=== PATIENT | male | born 1995 | race Caucasian/White ===

== ENCOUNTER 2020-10-25 19:32 | Emergency (ER) | payer SELFPAY ==
[~2020-10-25] VITALS: Ht 175.3 cm; Wt 168.7 kg
[2020-10-25 19:32] VITALS: BP 127/53
--- NOTE | 2020-10-25 19:48 | PHYS DOC ---
Past History Past Medical History: No Pertinent History, Anxiety Past Surgical History: Tonsillectomy Alcohol Use: None Drug Use: None General Adult HPI: HPI: ".. I ve been playing a lot of computer games... Got really..into it. drinking t oo many energy and caffeine drinks. Probably did more than 1000mg of caffeine.. Doing dip.. And straight tub chewing tobacco... But started having some sudden rapid heart rate.... And felt dizzy... ".." It was continuous for approximately 2 hours.. I started hyperventilating.. I get anxiety and panic issues.. I felt like maybe I was going to because my heart was beating so fast.. By the time he got here I was much better.. " Patient is a 25 year old male who presents with above hx and complaints acute onset of a tachycardia after consuming a large amount of caffeine and nicotine today. Patient does have a history of anxiety disorder and panic disorder. Patient denies any travel. Patient denies any illicit drug use recently. Patient in the past has used cocaine. Patient does not follow-up with primary care. Patient morbidly obese. There is family history of diabetes both of father and sister. No recent travel outside the [place] area. No specific ill contacts. No history immunosuppression. Review of Systems: Review of Systems: Constitutional: Denies fever or chills Eyes: Denies change in visual acuity HENT: Denies nasal congestion or sore throat Respiratory: Denies cough or shortness of breath Cardiovascular: Complaints of chest discomfort and tachycardia GI: Denies abdominal pain, nausea, vomiting, bloody stools or diarrhea : Denies dysuria Musculoskeletal: Denies back pain or joint pain Integument: Denies rash Neurologic: Denies headache, focal weakness or sensory changes Endocrine: Denies polyuria or polydipsia Lymphatic: Denies swollen glands Psychiatric: Denies depression or anxiety Family History: Family History: Diabetes with sister and father Current Medications: Current Meds: See nursing for home meds Allergies: Allergies: Allergies Coded Allergies Type Severity Reaction Last Updated Verified No Known Drug Allergies 01/15/16 No Physical Exam: PE: Constitutional: Moderate acute distress, non-toxic appearance. [] HENT: Normocephalic, atraumatic, bilateral external ears normal, oropharynx moist, no oral exudates, nose normal. [] Eyes: PERRLA, EOMI, conjunctiva normal, no discharge. [] Neck: Normal range of motion, no tenderness, supple, no stridor. [] Cardiovascular:Heart rate regular rhythm, no murmur [] Lungs & Thorax: Bilateral breath sounds equal apex on auscultation [] Abdomen: Bowel sounds normal, soft, no tenderness, no masses, no pulsatile masses. Morbidly obese. Skin: Warm, dry, no erythema, no rash. Tattoo of "Bid Dog" lt. shoulder. Back: No tenderness, no CVA tenderness. [] Extremities: No tenderness, no cyanosis, no clubbing, ROM intact, bilateral ankle edema. [] No cording appreciated Neurologic: Alert and oriented X 3, normal motor function, normal sensory function, no focal deficits noted. [] Psychologic: Affect anxious, judgement normal, mood normal. [] EKG: EKG: My interpretation EKG shows a sinus rhythm at 94 bpm. No findings acute STEMI with contralateral changes. 1940 hrs. [] My interpretation of second EKG at 23.21 minutes. Shows sinus rhythm at 72 bpm. No acute morphology. Radiology/Procedures: Radiology/Procedures: [][address] [id number] IMAGING REPORT Signed PATIENT: JUAN ALMAZAN ACCOUNT: [id number] : 1995 LOCATION: ER AGE: 25 SEX: M EXAM STATUS: PRE ER ORD. PHYSICIAN: AVERY JOE MD REASON: cp PROCEDURE: CHEST PA & LATERAL EXAMINATION: XR CHEST 2V CLINICAL HISTORY: Chest pain EXAM DATE/TIME: 10/25/2020 8:16 PM COMPARISON: None FINDINGS: Lines, Tubes, and Devices: None. Cardiomediastinal Silhouette: Within normal limits. Lungs and Pleura: Mild patchy airspace disease in the lower lung zones, possibly atelectasis. No pleural effusion or pneumothorax. Bones and Soft Tissues: No acute osseous abnormality. IMPRESSION: Mild patchy airspace disease and bilateral lower lung zones. Electronically signed by: Dimas Malhotra DO (10/25/2020 8:47 PM) [facility] DICTATED AND SIGNED BY: DIMAS MALHOTRA DO DATE: 10/25/202040 CC: AVERY JOE MD; PCP,NO ~MTH0 0 Heart Score: C/O Chest Pain: Yes HEART Score for Chest Pain: HEART Score for Chest Pain Response (Comments) Value History Slighlty/Non-Suspicious 0 ECG Normal 0 Age < 45 0 Risk Factors 1 or 2 Risk Factors 1 Troponin < Normal Limit 0 Total 1 Risk Factors: Risk Factors: DM, Current or recent (<one month) smoker, HTN, HLP, family history of CAD, obesity. Risk Scores: Score 0 - 3: 2.5% MACE over next 6 weeks - Discharge Home Score 4 - 6: 20.3% MACE over next 6 weeks - Admit for Clinical Observation Score 7 - 10: 72.7% MACE over next 6 weeks - Early Invasive Strategies Course & Med Decision Making: Course & Med Decision Making Pertinent Labs and Imaging studies reviewed. (See chart for details) Patient stop caffeine drinks. Patient to stop tobacco use. Patient encouraged to develop better health habits. Must follow-up with primary care. Take a daily aspirin. Patient's hypertension, diabetes, and hypokalemia must be followed up. Patient return with any concerns. Impression: 1. Hx. palpitations and tachycardia 2. Excessive caffeine use 3. Excessive tobacco use 4. History of anxiety and panic disorder 5. Morbid obesity 6. Hypokalemia 3.2 7. Elevated Creat. 1.6 8. DM - Glucose 145. 9. Marijuana use 10. HTN [] Dragon Disclaimer: Dragon Disclaimer: This electronic medical record was generated, in whole or in part, using a voice recognition dictation system. Departure Departure: Referrals: PCP,NO (PCP) Dragon Disclaimer This chart was dictated in whole or in part using Voice Recognition software in a busy, high-work load, and often noisy Emergency Department environment. It may contain unintended and wholly unrecognized errors or omissions. AVERY JOE MD October 25, 2020 19:48
[2020-10-25 20:05] LABS: BASO # 0.1 x10^3/uL (0.0-0.2); BASO % 1 % (0-3); EOS # 0.1 x10^3/uL (0.0-0.7); EOS % 1 % (0-3); HEMATOCRIT 45.5 % (39.0-53.0); HEMOGLOBIN 15.2 g/dL (13.0-17.5); LYMPH # 2.3 x10^3/uL (1.0-4.8); LYMPH % 20 % (24-48); MEAN CORPUSCULAR HEMOGLOBIN 29 pg (25-35); MEAN CORPUSCULAR HGB CONC 33 g/dL (31-37); MEAN CORPUSCULAR VOLUME 86 fL (79-100); MONO # 0.7 x10^3/uL (0.0-1.1); MONO % 6 % (0-9); NEUT # 8.5 x10^3uL (1.8-7.7); NEUT % 73 % (31-73); PLATELET COUNT 266 x10^3/uL (140-400); RED BLOOD COUNT 5.32 x10^6/uL (4.30-5.70); RED CELL DISTRIBUTION WIDTH 13.9 % (11.5-14.5); WHITE BLOOD COUNT 11.6 x10^3/uL (4.0-11.0)
[2020-10-25] MEDS: IV RINGERS SOLUTION,LACTATED 1,000 ML IV SCH (20:07)
[2020-10-25] MEDS: ASPIRIN 325 MG TABLET PO ONE (20:08)
--- NOTE | 2020-10-25 20:13 | EKG ---
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
[2020-10-25 20:15] LABS: CALCIUM 8.8 mg/dL (8.5-10.1); CREATININE 1.6 mg/dL (0.7-1.3); GFR 53.4; POTASSIUM 3.2 mmol/L (3.5-5.1)
[2020-10-25 20:27] LABS: ALBUMIN 3.7 g/dL (3.4-5.0); DIRECT BILIRUBIN 0.2 mg/dL (0.0-0.2); MAGNESIUM 1.8 mg/dL (1.8-2.4); TOTAL BILIRUBIN 0.5 mg/dL (0.2-1.0); TOTAL PROTEIN 7.7 g/dL (6.4-8.2)
[2020-10-25 20:29] LABS: AMPHETAMINE/METHAMPHETAMINE NEG (NEG); BARBITURATES NEG (NEG); BENZODIAZEPINES NEG (NEG); CANNABINOIDS POS (NEG); COCAINE NEG (NEG); METHADONE NEG (NEG); OPIATES NEG (NEG); PHENCYCLIDINE NEG (NEG)
[2020-10-25 20:31] LABS: BACTERIA,URINE 0 /HPF (0-FEW); BILIRUBIN,URINE NEG (NEG); CLARITY,URINE CLEAR; COLOR,URINE YELLOW; GLUCOSE,URINE NEG (NEG); NITRITE,URINE NEG (NEG); RBC,URINE 0 /HPF (0-2); SQUAMOUS EPITHELIAL CELL,UR MOD /LPF; UROBILINOGEN,URINE 0.2 mg/dL (0.2 mg/dL); WBC,URINE OCC /HPF (0-4)
--- NOTE | 2020-10-25 20:50 | RAD ---
EXAMINATION: XR CHEST 2V CLINICAL HISTORY: Chest pain EXAM DATE/TIME: 10/25/2020 8:16 PM COMPARISON: None FINDINGS: Lines, Tubes, and Devices: None. Cardiomediastinal Silhouette: Within normal limits. Lungs and Pleura: Mild patchy airspace disease in the lower lung zones, possibly atelectasis. No pleu ral effusion or pneumothorax. Bones and Soft Tissues: No acute osseous abnormality. IMPRESSION: Mild patchy airspace disease and bilateral lower lung zones. Electronically signed by: Dimas Malhotra DO (10/25/2020 8:47 PM) [facility]
[2020-10-25] MEDS ORDERED: POTASSIUM CHLORIDE 20 MEQ TABLET.ER. PO ONE (23:15)
--- NOTE | 2020-10-26 00:07 | EKG ---
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
[2020-10-26 12:47] LABS: THYROID STIM HORMONE (TSH) 1.988 uIU/mL (0.358-3.740)
== END 2020-10-26 00:25 | disposition home or self-care (01) ==
LOC: ER 19:32
DX: E87.6 Hypokalemia (principal); R00.2 Palpitations; R42 Dizziness and giddiness; E11.9 Type 2 diabetes mellitus without complications; I10 Essential (primary) hypertension; F12.10 Cannabis abuse, uncomplicated; F17.210 Nicotine dependence, cigarettes, uncomplicated; F41.0 Panic disorder [episodic paroxysmal anxiety]; E66.01 Morbid (severe) obesity due to excess calories; Z68.43 Body mass index [BMI] 50.0-59.9, adult
CPT/HCPCS: 36415; 71046; 80048; 80061; 80076; 80307; 81001; 82550; 83690; 83735; 83880; 84443; 84484; 85025; 85379; 85610; 85730; 93005; 96360; 99285; J7120